=== PATIENT | female | born 1970 ===

== ENCOUNTER 2023-02-01 11:40 | Emergency (ER) | payer SELFPAY ==
[2023-02-01] MEDS ORDERED: Sodium Chloride 0.9% 1,000 ML IV ONE (13:50)
[2023-02-01 14:00] LABS: CARBON DIOXIDE,CO2 22.2 mmol/L (21.0-32.0); POTASSIUM,K 4.3 mmol/L (3.5-5.1)
[2023-02-01] MEDS ORDERED: Iopamidol 755 Mg/ML 100 ML Bottle IVPUSH ONE (14:32)
== END 2023-02-01 17:01 | disposition home or self-care (01) ==
LOC: MW.ED 11:40
DX: K57.32 Diverticulitis of large intestine without perforation or abscess without bleeding (principal); Q43.3 Congenital malformations of intestinal fixation; F17.210 Nicotine dependence, cigarettes, uncomplicated; Z86.16 Personal history of COVID-19; Z88.5 Allergy status to narcotic agent
CPT/HCPCS: 36415; 74177; 80053; 81001; 83605; 83690; 84702; 85025; 96360; 99284; J7030; Q9967